=== PATIENT | male | born 1975 | race African-American/Black ===

== ENCOUNTER 2024-02-05 23:44 | Inpatient (IN) | payer MEDICARE, MEDICAID ==
[~2024-02-05] VITALS: Ht 170.2 cm; Wt 82.8 kg
[~2024-02-05 23:44] MED LIST: FLUO-341 PO; LURA40TA2 PO; MELA5TAB40 PO; OMEG100033 PO
[2024-02-06] MEDS ORDERED: OLANZapine 5 MG RAPDIS TABLET PO PRN (02:15)
[2024-02-06] MEDS ORDERED: ZOLPIDEM TARTRATE 10 MG TABLET PO PRN (02:15)
[2024-02-06] MEDS ORDERED: LORazepam 2 MG TABLET PO PRN (02:15)
[2024-02-06 02:56] LABS: GLUCOMETER DEV NAME(LOC) POC.BV; POC SARS-COV2 AG, FIA NEGATIVE (NEGATIVE)
[2024-02-06 03:59] VITALS: BP 140/84; PULSE 81; RESP 18; TEMP 97.5; O2SAT 100
[2024-02-06] MEDS ORDERED: HALOPERIDOL 5 MG TABLET PO PRN (07:30)
[2024-02-06 08:21] VITALS: BP 111/60; PULSE 83; RESP 16; TEMP 97.3; O2SAT 97
[2024-02-06] MEDS ORDERED: MELATONIN 5 MG TABLET PO PRN (11:15)
[2024-02-06] MEDS ORDERED: LURASIDONE HCL 20 MG TABLET PO PRN (11:15)
[2024-02-06] MEDS ORDERED: LOPERAMIDE HCL 2 MG CAPSULE PO PRN (11:15)
[2024-02-06] MEDS ORDERED: PROMETHAZINE HCL 25 MG TABLET PO PRN (11:15)
[2024-02-06] MEDS ORDERED: ACETAMINOPHEN 325 MG TABLET PO PRN (11:15)
[2024-02-06] MEDS ORDERED: GuaiFENesin/D-METHORPHAN [SUGAR-FREE] 200-20MG/10 ML SYRUP UDCUP PO PRN (11:15)
[2024-02-06] MEDS ORDERED: HydrOXYzine PAMOATE 50 MG CAPSULE PO PRN (11:15)
[2024-02-06] MEDS ORDERED: MAGNESIUM HYDROXIDE SUSPENSION 30 ML UDCUP PO PRN (11:15)
[2024-02-06] MEDS ORDERED: MAG HYDROX/ALUMINUM HYD/SIMETH ES 30 ML SUSPENSION UDCUP PO PRN (11:15)
[2024-02-06] MEDS: INFLUENZA VIRUS VACCINE TVS (6MO+) 2024-25/PF 45 MCG/0.5 ML SYRINGE IM. ONE (15:02)
[2024-02-06] MEDS: PNEUMOCOCCAL VACCINE POLYVALENT 0.5 ML SYRINGE [PPSV23] IM. ONE (15:03)
[2024-02-06] MEDS: THIAMINE 100 MG TABLET PO SCH (16:40)
[2024-02-06] MEDS: LURASIDONE HCL 40 MG TABLET PO SCH (16:41)
[2024-02-06 21:33] VITALS: BP 128/76; PULSE 85; RESP 16; TEMP 97.6; O2SAT 98
[2024-02-07] MEDS: OMEGA-3/DHA/EPA/FISH OIL 1,000 MG CAPSULE PO SCH (08:49)
[2024-02-07] MEDS: FLUoxetine HCL 20 MG CAPSULE PO SCH (08:50)
[2024-02-07] MEDS: FOLIC ACID 1 MG TABLET PO SCH (08:50)
[2024-02-07] MEDS: MULTIVITAMINS WITH MINERALS, THERAPEUTIC TABLET PO SCH (08:50)
[2024-02-07] MEDS: NALTREXONE HCL 50 MG TABLET PO SCH (08:50)
[2024-02-07 09:32] VITALS: BP 107/63; PULSE 80; RESP 18; TEMP 96.7; O2SAT 97
[2024-02-07 21:58] VITALS: RESP 18
[2024-02-08 21:46] VITALS: BP 122/70; PULSE 76; RESP 16; TEMP 97.4; O2SAT 98
[2024-02-09 09:18] VITALS: BP 101/64; PULSE 74; RESP 20; TEMP 97.1; O2SAT 99
== END 2024-02-09 15:04 | disposition left against medical advice (07) | DRG 885 ==
LOC: B2X 02-06 02:01
PROVIDERS: ADMIT Psychiatry & Neurology Psychiatry; ATTEND Psychiatry & Neurology Psychiatry
PROC: GZHZZZZ Group Psychotherapy (ICD-10-PCS; principal; 2024-02-06)
PROC: GZ51ZZZ Individual Psychotherapy, Behavioral (ICD-10-PCS; 2024-02-06)
DX: F25.9 Schizoaffective disorder, unspecified (principal); R45.851 Suicidal ideations; J45.909 Unspecified asthma, uncomplicated; F32.A Depression, unspecified; F17.210 Nicotine dependence, cigarettes, uncomplicated; F41.9 Anxiety disorder, unspecified; Z91.199 Patient's noncompliance with other medical treatment and regimen due to unspecified reason; Z91.148 Patient's other noncompliance with medication regimen for other reason; Z53.29 Procedure and treatment not carried out because of patient's decision for other reasons; Z20.822 Contact with and (suspected) exposure to COVID-19
CPT/HCPCS: Z7610